=== PATIENT | male | born 1970 | race Caucasian/White ===

== ENCOUNTER → 2020-07-20 08:08 | Outpatient (BNVA) | payer SELFPAY | PROVIDERS: Visit Provider Internal Medicine | DX: Z76.89 Persons encountering health services in other specified circumstances (principal) ==

== ENCOUNTER 2020-10-01 16:54 | Emergency (ER) | payer OTHER, SELFPAY ==
[2020-10-01 17:15] VITALS: BP 203/112; PULSE 70; RESP 16; TEMP 36.5; O2SAT 99; BMI 28.2
--- NOTE | 2020-10-01 17:23 | ECG_ITS ---
Test Reason : HYPERTENSION Blood Pressure : / mmHG Vent. Rate : 067 BPM Atrial Rate : 067 BPM P-R Int : 204 ms QRS Dur : 098 ms QT Int : 430 ms P-R-T Axes : 058 -43 074 degrees QTc Int : 454 ms Normal sinus rhythm Left axis deviation Moderate voltage criteria for LVH, may be normal variant Nonspecific T wave abnormality Abnormal ECG When compared with ECG of 05-OCT-2012 18:51, MS interval has decreased Referred By: Harley Pantoja Electronically Signed By:Jesus Peterson
--- NOTE | 2020-10-01 17:23 | CT_ITS ---
EXAMINATION: CT HEAD WITHOUT CONTRAST CLINICAL INFORMATION: Elevated blood pressure. Stroke COMPARISON: None TECHNIQUE: Contiguous axial imaging was performed from the skull base to vertex without intravenous administration of contrast. This CT examination was performed using dose optimization techniques as appropriate, variously including the following: *Automated exposure control *Adjustment of mA and/or kV according to patient size (this includes techniques or standardized protocols for targeted exams where dose is matched to indication/reason for exam; i.e. extremities or head) *Use of iterative reconstruction technique DLP: 680 mGy-cm FINDINGS: There is no evidence of acute intracranial hemorrhage or territorial infarction. No abnormal mass effect or midline shift is seen. Russo to white matter differentiation is well preserved. No extra-axial fluid collections are identified. The ventricles are normal in size. There is no abnormal attenuation within the brain parenchyma. The osseous structures and soft tissues are normal. The mastoid air cells and visualized portions of the paranasal sinuses are well aerated. CT/CT head/brain wo con IMPRESSION: No acute intracranial process seen.
--- NOTE | 2020-10-01 17:23 | XR_ITS ---
EXAMINATION: XR KNEE, RIGHT CLINICAL INFORMATION: Right knee pain COMPARISON: None TECHNIQUE: Four views of the right knee. FINDINGS: No fracture or dislocation. No joint effusion. Mild medial compartment joint space narrowing. Enthesopathy of the distal quadriceps tendon attachment. Mild tibial spine hypertrophy. XR/XR knee RT 4V IMPRESSION: No acute osseous abnormality. Degenerative changes.
--- NOTE | 2020-10-01 17:25 | ED.EXTPRO ---
HPI - Extremity Problem General Chief complaint: Extremity Injury, Lower Stated complaint: Knee Injury Time Seen by Provider: 10/01/20 17:48 Source: patient Mode of arrival: ambulatory Limitations: no limitations History of Present Illness HPI Narrative: Presents to ED for right knee pain. Patient states pain is worse on movement. Patient states that he was shoveling snow and might have pulled a ligament his knee. Patient denies any blunt trauma to the knee. Patient states no redness, swelling, fever, chills, red streaks, calf pain, or any other deformity. Upon evaluation. Patient's blood pressure is high. Patient states he has a history of of high blood pressure but has been off his meds amlodopine and lisinopril for 3 months because he does not have insurance and does not want to pay for amlodipine or lisinopril. Patient denies any headache, dizziness, chest pain, shortness of breath, slurred speech, loss of vision, or paralysis of extremities. MD Complaint: extremity pain Related Data Previous Rx's Medication Instructions Recorded amlodipine 5 mg PO DAILY #20 tab 10/01/20 lisinopril 10 mg PO DAILY #20 tab 10/01/20 naproxen 500 mg PO BID PRN #20 tab 10/01/20 Allergies Allergy/AdvReac Type Severity Reaction Status Date / Time No Known Allergies Allergy Verified 10/01/20 17:28 Review of Systems Constitutional: Constitutional: Reports as per HPI, Reports no additional constitutional complaints and Reports excessive sweating Eyes: Eyes: Reports as per HPI and Reports no additional eye complaints ENT: Reports system reviewed and no additional complaints, except as documented and Reports as per HPI Cardiovascular: Cardiovascular: Reports as per HPI and Reports no additional cardiovascular complaints Respiratory: Respiratory: Reports as per HPI and Reports no additional respiratory complaints Gastrointestinal: Gastrointestinal: Reports as per HPI and Reports no additional gastrointestinal complaints Genitourinary: Genitourinary: Reports no additional male genitourinary complaints and Reports as per HPI Musculoskeletal: Musculoskeletal: Reports no additional musculoskeletal complaints and Reports as per HPI Comments: Right knee pain Neurologic: Reports system reviewed and no additional complaints, except as documented and Reports as per HPI Psychiatric: Psychiatric: Reports no additional psychiatric complaints and Reports as per HPI Endocrine: Endocrine: Reports excessive sweating PMFSH Past Medical History Medical History (Updated 10/02/20 @ 00:00 by Background Daemon) HTN (hypertension) Social History Social History Alcohol intake: never Smoking Status: Former smoker Use of substances other than those prescribed or required for medical reasons: No Advance Directives: No Advance Directives Information Provided: Yes Physical Exam Vital Signs: Vital Signs: Last Vital Signs Temp 98.7 F 10/01/20 20:25 Pulse 63 10/01/20 21:17 Resp 16 10/01/20 21:17 BP 142/93 H 10/01/20 21:17 Pulse Ox 98 10/01/20 21:17 Body Mass Index 28.2 Const: General: cooperative, healthy appearing, comfortable, no acute distress, well developed, alert, awake, Physically active and acute distress Orientation/consciousness: patient oriented x3 HENMT: Head: Yes normal to inspection and Yes No palpable skull fracture present Eyes: General: appearance normal, both eyes and all related structures Neck: Neck: Yes normal visual inspection, Yes full ROM, Yes no lymphadenopathy, Yes no meningeal signs, Yes trachea midline, Yes supple and No tender Chest: Chest palpation & inspection: normal inspection of the chest and normal palpation of entire chest wall Resp: Effort & Inspection: normal respiratory effort and able to speak in complete sentences Auscultation: clear to auscultation bilaterally Cardio: Jugular venous distension: no JVD Heart sounds: S1 normal heart sound present and S2 normal heart sound present GI: Inspection: Yes normal to inspection and No abdominal wall ecchymosis Palpation (GI): Soft to palpation, not firm, nontender, no guarding and not rigid : General: No CVA tenderness and Yes no CVA tenderness Back/Spine/Pelvis: Back: no CVA tenderness, No CVA tenderness and No back tenderness Skin: General skin exam: no rashes or lesions noted and elasticity normal Neuro: Other: Negative for slurred speech. Negative for facial droop. Negative for pronator drift. Rapid hand movement and finger to eye nose test is intact. Negative Romberg. Speech is normal. negative for any deficits. General: patient oriented x3, gait normal, no meningeal signs and CN's II-XI intact bilaterally Cranial nerves: Yes CN's II-XII intact bilaterally Extrem: Other: Right lower extremity: Right knee negative for any swelling, redness, warmth, red streaks, or any deformity. Right legs negative for any leg swelling, calf pain, redness, warmth. Right foot normal. Pulses intact. Left lower extremity normal. Psych: Appearance: grossly normal, well kempt and not disheveled Course Course Course Narrative: Physical exam indicate right strain versus sprain. Doubt fracture but was sent for x-ray. Due to patient being hypertensive and not compliant. Will do labs to make sure there is no kidney failure, or heart attack. Patient will have EKG and head CT. Patient given Tylenol and clonidine. Negative for any neuro deficit. Reevaluation(s) Reevaluation #1: Patient's troponin did not increased by 50% which makes ID unlikely. Patient's blood pressure control after only receiving clonidine. Patient head CT negative for stroke. Patient's x-ray showed arthritis. Patient states he used to take amlodipine and lisinopril. Patient will be discharged with these 2 medications. Patient states he was taking lisnopril 10mg and amlodopine 5mg. Patient informed to follow-up with PCP to manage his high blood pressure. Patient is safe for discharge. Negative for any neuro deficits to indicate stroke. Time: 22:14 MDM - Extremity (Nontraumatic) MDM Narrative Medical decision making narrative: Arthritis of the knee. Hypertension Lab Data Result diagrams: 10/01/20 18:22 10/01/20 18:22 Labs: Lab Results 10/01/20 10/01/20 10/01/20 Range/Units 18:22 18:22 18:22 WBC 10.2 (4.8-10.8) X10*3/uL RBC 5.40 (4.60-5.80) X10*6/uL Hgb 16.2 (14.0-18.0) g/dl Hct 46.5 (42-52) % MCV 86.1 (80-98) fL MCH 30.0 (27.0-33.0) pg MCHC 34.8 (31.0-36.0) g/dl RDW 12.7 (11.0-16.0) % Plt Count 194 (160-400) X10*3/uL MPV 8.8 L (9.4-12.4) fL Immature Gran % (Auto) 0.3 (0.0-0.4) % Neut % (Auto) 59.1 (45-73) % Lymph % (Auto) 28.2 (20-40) % [place] % (Auto) 8.9 (2-11) % Eos % (Auto) 3.3 (0-4) % Baso % (Auto) 0.2 (0-2) % Lymph # (Auto) 2.9 (1.2-4.9) X10*3/uL [place] # (Auto) 0.9 (0.1-1.2) X10*3/uL Eos # (Auto) 0.3 (0.0-0.4) X10*3/uL Baso # (Auto) 0.0 (0.0-0.2) X10*3/uL Abs Immat Gran (auto) 0.03 (0.00-0.03) X10*3/uL Absolute Neuts (auto) 6.1 (2.0-8.3) X10*3/uL Absolute Nucleated RBC 0.000 (0.0-0.012) X10*3/uL Nucleated RBC % (auto) 0.0 (0.0-0.2) /100WBC PT 11.6 (10.8-13.0) SEC INR 1.0 (0.9-1.1) APTT 36.7 (24.1-38.0) SEC Sodium 138 (135-145) mmol/L Potassium 4.4 (3.3-5.1) mmol/l Chloride 108 (96-108) mmol/L Carbon Dioxide 23 (22-29) mmol/L Anion Gap 11 L (12-20) BUN 14 (9-16) mg/dL Creatinine 1.00 (0.5-1.4) mg/dL Estim Creat Clear Calc 112.7 Estimated GFR > 60 Random Glucose 88 (60-115) mg/dL Calcium 8.8 (8.4-10.2) mg/dL Total Bilirubin 0.4 (0.0-1.0) mg/dL AST 35 (5-37) U/L ALT 55 H (0-40) U/L Alkaline Phosphatase 55 (39-117) U/L Troponin I High Sens (<3.5-35.0) ng/L Total Protein 7.0 (6.5-8.0) g/dL Albumin 4.1 (3.5-5.0) g/dL 12/19/20 12/19/20 Range/Units 18:22 21:20 WBC (4.8-10.8) X10*3/uL RBC (4.60-5.80) X10*6/uL Hgb (14.0-18.0) g/dl Hct (42-52) % MCV (80-98) fL MCH (27.0-33.0) pg MCHC (31.0-36.0) g/dl RDW (11.0-16.0) % Plt Count (160-400) X10*3/uL MPV (9.4-12.4) fL Immature Gran % (Auto) (0.0-0.4) % Neut % (Auto) (45-73) % Lymph % (Auto) (20-40) % [place] % (Auto) (2-11) % Eos % (Auto) (0-4) % Baso % (Auto) (0-2) % Lymph # (Auto) (1.2-4.9) X10*3/uL [place] # (Auto) (0.1-1.2) X10*3/uL Eos # (Auto) (0.0-0.4) X10*3/uL Baso # (Auto) (0.0-0.2) X10*3/uL Abs Immat Gran (auto) (0.00-0.03) X10*3/uL Absolute Neuts (auto) (2.0-8.3) X10*3/uL Absolute Nucleated RBC (0.0-0.012) X10*3/uL Nucleated RBC % (auto) (0.0-0.2) /100WBC PT (10.8-13.0) SEC INR (0.9-1.1) APTT (24.1-38.0) SEC Sodium (135-145) mmol/L Potassium (3.3-5.1) mmol/l Chloride (96-108) mmol/L Carbon Dioxide (22-29) mmol/L Anion Gap (12-20) BUN (9-16) mg/dL Creatinine (0.5-1.4) mg/dL Estim Creat Clear Calc Estimated GFR Random Glucose (60-115) mg/dL Calcium (8.4-10.2) mg/dL Total Bilirubin (0.0-1.0) mg/dL AST (5-37) U/L ALT (0-40) U/L Alkaline Phosphatase (39-117) U/L Troponin I High Sens 9.2 7.0 (<3.5-35.0) ng/L Total Protein (6.5-8.0) g/dL Albumin (3.5-5.0) g/dL ECG Data Interpretation: Normal sinus rhythm. Ventricular rate 67. [place] 204. QTC 454. Negative STEMI. Discharge Plan Discharge Clinical Impression: Hypertension, Arthritis of knee, right Patient Disposition: Home, Self-Care Instructions: Hypertension (ED), Arthritis (ED) Additional Instructions: Return to the ED immediately for headache, dizziness, chest pain, shortness of breath, slurred speech, loss of vision, or any other concerning symptoms. Please follow-up with your PCP. Knee xray shows Enhesopathy of distal quadriceps tendon Prescriptions: New amlodipine 5 mg tablet 5 mg PO DAILY Qty: 20 RF: 0 lisinopril 10 mg tablet 10 mg PO DAILY Qty: 20 RF: 0 naproxen 500 mg tablet 500 mg PO BID PRN (Reason: pain) Qty: 20 RF: 0 Stand Alone Forms: Work/School Release Interventions: ED Discharge Assessment Last Done: 10/01/20 22:36 Discharge Date/Time: 10/01/20 22:39 Print Language: Frisian
[2020-10-01 18:05] VITALS: BP 164/112; PULSE 63; RESP 16; O2SAT 98
[2020-10-01 18:06] VITALS: BP 164/112; PULSE 66
[2020-10-01] MEDS: cloNIDine HCL 0.2 MG TABLET PO (18:06)
[2020-10-01] MEDS: Acetaminophen 325 MG TABLET 650 MG PO (18:06)
[2020-10-01 18:29] LABS: Basophils Percent Auto 0.2 % (0-2); Eosinophils Absolute Auto 0.3 X10*3/uL (0.0-0.4); Eosinophils Percent Auto 3.3 % (0-4); Hematocrit 46.5 % (42-52); Hemoglobin 16.2 g/dl (14.0-18.0); Imm Gran Abs Auto 0.03 X10*3/uL (0.00-0.03); Imm Gran Pct Auto 0.3 % (0.0-0.4); Lymphocytes Absolute Auto 2.9 X10*3/uL (1.2-4.9); Lymphocytes Percent Auto 28.2 % (20-40); MANUAL DIFF FLAG NO; Mean Corpuscular HGB Conc 34.8 g/dl (31.0-36.0); Mean Corpuscular Volume 86.1 fL (80-98); Mean Platelet Volume 8.8 fL (9.4-12.4); Monocytes Absolute Auto 0.9 X10*3/uL (0.1-1.2); Monocytes Percent Auto 8.9 % (2-11); Neutrophils Absolute Auto 6.1 X10*3/uL (2.0-8.3); Neutrophils Percent Auto 59.1 % (45-73); Platelet Count 194 X10*3/uL (160-400); Red Cell Distribution Width 12.7 % (11.0-16.0); White Blood Count 10.2 X10*3/uL (4.8-10.8)
[2020-10-01 18:35] LABS: Prothrombin Time 11.6 SEC (10.8-13.0)
[2020-10-01 18:37] LABS: Partial Thromboplastin Time 36.7 SEC (24.1-38.0)
[2020-10-01 18:52] VITALS: BP 166/97; PULSE 68; RESP 16; O2SAT 99
[2020-10-01 19:08] LABS: Troponin-I High Sensitivity 9.2 ng/L (<3.5-35.0)
[2020-10-01 19:18] LABS: Alanine Aminotransferase 55 U/L (0-40); Albumin Level 4.1 g/dL (3.5-5.0); Alkaline Phosphatase 55 U/L (39-117); Anion Gap 11 (12-20); Aspartate Amino Transferase 35 U/L (5-37); Bilirubin Total 0.4 mg/dL (0.0-1.0); Blood Urea Nitrogen 14 mg/dL (9-16); Calcium 8.8 mg/dL (8.4-10.2); Carbon Dioxide 23 mmol/L (22-29); Chloride 108 mmol/L (96-108); Creatinine Clr Calc Pharmacy 112.7; Estimated Glomerular Filt Rate > 60; Glucose Random 88 mg/dL (60-115); Potassium 4.4 mmol/l (3.3-5.1); Sodium 138 mmol/L (135-145)
[2020-10-01 20:25] VITALS: BP 144/95; PULSE 61; RESP 14; TEMP 37.1; O2SAT 98
[2020-10-01 21:17] VITALS: BP 142/93; PULSE 63; RESP 16; O2SAT 98
== END 2020-10-01 22:39 | disposition home or self-care (01) ==
PROVIDERS: Physician Assistant; Emergency Provider Emergency Medicine
DX: M17.11 Unilateral primary osteoarthritis, right knee (principal); I10 Essential (primary) hypertension
CPT/HCPCS: 36415; 70450; 73564; 80053; 84484; 85025; 85610; 85730; 93005; 99284